=== PATIENT | female | born 1970 | race Caucasian/White ===

== ENCOUNTER 2016-07-03 21:12 | Inpatient (IN) | payer BC ==
[~2016-07-03] VITALS: Ht 172.7 cm; Wt 79.5 kg
--- NOTE | ~2016-07-03 | HP ---
PATIENT'S NAME: BOBO DE SOUZA [facility] AGE: 46 Y [address] ROOM: [address] [place] [address] [place] [facility] [place]: 07/03/2016 History & Physical DISCHARGE DATE: FAMILY PHYSICIAN: Ayde Alvarez MD ATTENDING PHYSICIAN: WASHINGTON ROBERTSON DATE OF SERVICE: CHIEF COMPLAINT: Abdominal pain. 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 The story is that on July 03, 2016, while she was at work here in the hospital, the patient had a salad for lunch, and roughly around 03:30 p.m., the patient started feeling increased peristalsis noise in her abdomen. Then, she started to feel this left lower quadrant pain and the periumbilical pain of about 3/10 intensity about intermittent characteristic, which was on and off and localized. As the day went by, this pain had become constant, and was getting worse. When the patient got home, the patient ate some crackers, and the pain was still there and still constant. It got worse up to 9/10 intensity. Last time the patient passed flatus was around 8 p.m. when she got home just once. She had not passed any flatus prior to that on July 03, 2016. Last bowel movement was yesterday morning on July 03, 2016. One bowel movement, and it was normal. Last time she ate a meal was the cracker, that was around 7 p.m. when she got home from work on July 03, 2016. Because the pain got worse at home, the patient contacted [facility], where a physician was evaluating her through the computer, and the patient was advised to come to the ER for evaluation. The patient never had this kind of pain before, and the patient does have a prior intra-abdominal surgery in the past including three times, the last time was in 2010. At that time, the was inadvertently into the bladder, where she also required some bladder repair at that time. The patient also has a history of a right ovary hemorrhagic cyst removal, where she underwent status post right salpingo-oophorectomy that was in 2014. Due to the adhesion from all the C-sections in the past, the patient also required a laparoscopic adhesion lysis back in 2013, where a lot of adhesions were removed. The patient has not felt any nausea, and has not vomited during all this time. The patient does not know any family history of any gastrointestinal disorder, given that the patient is adopted. Therefore, the patient does not know if any family member had any history of inflammatory bowel disease or not. PATIENT'S NAME: BOBO DE SOUZA [facility] AGE: 46 Y [address] ROOM: [place] [address] [place] [facility] [place]: 07/03/2016 History & Physical DISCHARGE DATE: FAMILY PHYSICIAN: Ayde Alvarez MD ATTENDING PHYSICIAN: WASHINGTON ROBERTSON REVIEW OF SYSTEMS: As mentioned in the history of present illness. All other systems were reviewed, and are negative except those mentioned in the history of present illness. PAST MEDICAL HISTORY: No known past medical history. ALLERGIES: SULFA, WHICH CAUSES HIVES. TETRACYCLINE ALSO CAUSES HIVES. HOME MEDICATIONS: 1. Multivitamin one tablet p.o. daily. 2. Flexeril p.o. on an occasional basis p.r.n. for spasm. 3. Occasional meloxicam p.o. p.r.n. also for spasm. FAMILY HISTORY: The patient is adopted. Therefore, does not know much about her biological parents' past medical history. SOCIAL HISTORY: The patient denies any illegal drug or cigarette smoking in the present or in the past. The patient is a social alcohol drinker. She denies any alcohol withdrawal or any alcohol withdrawal delirium tremens or alcohol withdrawal seizure or any history of alcohol dependence. PAST SURGICAL HISTORY: 1. Status post three times. The last one was done in 2010, which included bladder repair due to injury during the . 2. Status post laparoscopic adhesion lysis in 2013 from the scar tissue from the . 3. Status post right ovary removal from hemorrhagic cyst and status post a right salpingo-oophorectomy back in 2014. 4. Status post bilateral temporomandibular joint repair back in 1989. PHYSICAL EXAMINATION: VITAL SIGNS: At the time of my dictation, temperature was 98, blood pressure was 120/80, respirations were 14, and saturation was 99% on room air. Pain is 3 to 4/10 in the periumbilical area and also in the left lower quadrant area. GENERAL APPEARANCE: Alert and oriented x3. A very pleasant female, in no acute distress. She answered questions appropriately and followed commands without any problem. HEENT: Pupils were equally round and reactive to light. Extraocular muscles were intact. Anicteric sclerae. Nasal turbinates are normal bilaterally. Moist oral mucosa. PATIENT'S NAME: BOBO DE SOUZA [facility] AGE: 46 Y [address] ROOM: [place] [address] [place] [facility] [place]: 07/03/2016 History & Physical DISCHARGE DATE: FAMILY PHYSICIAN: Ayde Alvarez MD ATTENDING PHYSICIAN: WASHINGTON ROBERTSON NECK: No JVD. CARDIOVASCULAR: Regular rate and rhythm. Normal S1 and S2. No murmur. No rubs. No gallops. RESPIRATORY: Clear. Chest wall was nontender to palpation. ABDOMEN: Soft and nondistended. Bowel sounds were absent. No palpable mass. Tender to palpation of about 3 to 4/10 intensity in the left lower quadrant and also in the periumbilical area, and a little bit in the epigastric area. No abdominal rigidity. No findings to suggest peritonitis. No ascites. No rebound tenderness. EXTREMITIES: No edema in upper or lower extremity. Dorsalis pedis pulses were +2 bilaterally present and symmetrical. SKIN: No ulcer. No rash. No cyanosis. MUSCULOSKELETAL: No joint pain. No muscle pain. Range of motion was intact. NEUROLOGICAL: Grossly nonfocal. LABORATORY DATA: CPK was 69 and troponin was less than 0.04. White blood cells of 10.7, hemoglobin of 14, hematocrit of 38.8, MCV of 89.8, and platelets of 221. Glucose is 84, BUN is 12, creatinine is 0.7, sodium is 138, potassium is 3.5, chloride is 103, CO2 is 25, calcium is 9.6, total protein is 7, albumin is 4.5, AST is 16, ALT is 26, alkaline phosphatase is 69, total bilirubin is 0.7, anion gap is 13.5, globulin is 3.4, and GFR is more than 60. INR of 0.9 and APTT of 27. Urinalysis was negative for UTI. Amylase is 51, lipase is 90, and CK-MB is 0.9. IMAGING STUDIES: Ultrasound of the abdomen, the verbal report given to me from the ER, it was unremarkable. Please follow up with official reading in the morning. CT of abdomen and pelvis with contrast performed in the Emergency Room on admission, the preliminary report was read as a few pelvic segments of small bowel fluid-filled and mildly dilated with adjacent inflammatory changes. Considerations would include a developing low-grade obstruction or adynamic ileus. Correlate clinically for inflammatory bowel disease. Small, ill- defined extraluminal foci of gas and fluid suspicious for fistula formation or perforation. Indeterminate liver lesions as discussed. MRI may provide further characterization. EKG on admission, on July 03, 2016 at 10:12 p.m. showed sinus tachycardia at heart rate of 101, ME of 157 msec, QRS of 94 msec, QTc of 411 msec, and no acute ischemic changes. ASSESSMENT AND PLAN: 1. Regarding her abdominal pain, probably secondary to low-grade small bowel obstruction versus ileus versus inflammatory bowel disease, and PATIENT'S NAME: BOBO DE SOUZA [facility] AGE: 46 Y [address] ROOM: [place] [address] [place] [facility] [place]: 07/03/2016 History & Physical DISCHARGE DATE: FAMILY PHYSICIAN: Ayde Alvarez MD ATTENDING PHYSICIAN: WASHINGTON ROBERTSON suspicious for a fistula formation or perforation based on the preliminary report of the CT of abdomen and pelvis with contrast on admission: We will follow up with official report in the morning once the report is finalized, given the preliminary; sometimes, the report results can vary in the morning once it becomes finalized. I will treat her for all the possible differential diagnosis here based on physical exam and also on the CT report. For the possible low-grade small bowel obstruction, she will be n.p.o. and IV fluids for hydration. I will choose a D5 half-normal saline with 20 mEq of potassium chloride at 75 mL/hr, and also put NG tube right now for gastric decompression. Check lactic acid with add-on. A repeat lactic acid and also a basic metabolic panel and also get a KUB in the morning. General Surgery has already been informed about the case, and will see the patient in the morning for further evaluation. For the second possibility over the ileus, I will treat her right now for the small bowel obstruction, and wait for the final report of the CT in the morning and a KUB in the morning. If determined she has ileus and not a small bowel obstruction, then bowel regimen can be given. For the third differential based on the CT is inflammatory bowel disease with adjacent inflammatory changes and probably is less likely, given that the patient never had diarrhea and never had a history of known inflammatory bowel disease. However, due to the possible adjacent inflammatory changes and the pain on her abdominal examination, I will cover her with IV Solu-Medrol 40 mg one dose right now, and then cover her with antibiotics including IV ciprofloxacin and also IV Flagyl dosing per Pharmacy to treat for colitis. Regarding her suspicions for a fistula formation or perforation, at this point, there are no findings to suggest abdominal rigidity on the physical examination. The patient is not septic and also not febrile. The pain is already improving with the IV Dilaudid and also IV morphine given in the Emergency Room. We will follow up her closely with serial abdominal physical examination, looking for any formation of abdominal rigidity. Further plan depends on clinical course and based on the final report of the CT abdomen and pelvis in the morning, and also General Surgery consult. While she is n.p.o., I will also give her p.o. Peridex four times a day, and also she can have ice chips in a small amount to keep the oral cavity moist. Further plan depends on clinical course. The patient does have risk factor for small bowel obstruction due to her prior three sections and also prior history of a right salpingo- oophorectomy and also prior history of laparoscopic adhesion lysis back in 2013. 2. Regarding her deep venous thrombosis prophylaxis. The patient will be on compression devices for now in case that she would require any surgical intervention depending on the General Surgery evaluation in the morning. 3. Code status. She is a full code. PATIENT'S NAME: BOBO DE SOUZA [facility] AGE: 46 Y [address] ROOM: [place] [address] [place] [facility] [place]: 07/03/2016 History & Physical DISCHARGE DATE: FAMILY PHYSICIAN: Ayde Alvarez MD ATTENDING PHYSICIAN: WASHINGTON ROBERTSON Time spent in care on the day of admission was 50 minutes including chart review, interviewing the patient, examining the patient, addressing all the questions and concerns that the patient had, and also went over the plan of care in detail with the patient and also with the nurses. All questions and concerns were answered to the patient's satisfaction. The patient is in agreement with the plan, and further plan will depend on clinical course. MD JJ HARRIS/yana /[id number] D: [id number] T: [id number] HISTORY & PHYSICAL
--- NOTE | ~2016-07-03 | DS ---
PATIENT'S NAME: BOBO DE SOUZA [facility] AGE: 46 Y [address] ROOM: [address] [place] [id number] LOCATION: [facility] [place] ADMIT DATE: 07/03/2016 Discharge Summary DISCHARGE DATE: 07/06/2016 FAMILY PHYSICIAN: Ayde Alvarez MD ATTENDING PHYSICIAN: Rivas Roe PRIMARY DIAGNOSES: 1. Small bowel obstruction secondary to band adhesion. 2. Lower quadrant abdominal pain. 3. Liver lesion which is focal nodular hyperplasia. PRINCIPAL PROCEDURE: Done for the patient by Dr. Molina is laparoscopic release of small bowel obstruction. LABORATORY DATA: On admission, troponin less than 0.040. Lactic acid 1.3. WBC on admission was 10.7, prior to discharge was 12.2; H and H on admission was 14.0/38.8, prior to discharge was 13.2/37.6; and platelet was stable throughout hospital stay, at 234 upon discharge. Creatinine was also stable throughout the hospital stay at 0.7; sodium was stable throughout his hospital stay, at 143 upon discharge; potassium on admission was 3.5, was repleted, prior to discharge it was 4.2; bicarb was stable at 25 throughout the hospital stay; and BUN was 12, was also stable throughout the hospital stay. Liver function tests were within normal limits. UA: Leukocytes negative, nitrite negative. Lipase 90, amylase 51. Microbiology: H. pylori negative. RADIOLOGY: Abdominal ultrasound: Normal complete abdominal ultrasound. CT of the abdomen: Focal dilated mid small bowel loops in the pelvis with mild inflammation, could be a partial obstruction from adhesion. There is also a possibility of focal small-bowel diverticulitis in this area. Stable enhancing liver lesion, probably focal nodular hyperplasia. KUB: There is nonobstructive bowel gas pattern. A moderate amount of fecal matter is present throughout the colon. Contrast material is present within the bladder. NG tube is present with tip at the proximal region of the GE junction. MRI of the abdomen and pelvis is reported as 5 hepatic lesions with intense early arterial phase enhancement, becoming isointense on the portal phase imaging and near isointense on both T1 and T2 weighted images. Findings are consistent with multiple areas of focal nodular hyperplasia. HOSPITAL COURSE: For history of present illness, please take a look at the H and P which was done by Dr. Roe. The patient was admitted to Medical Surgical Unit, had a general surgery consult because of the initial CAT scan report of probably a small-bowel obstruction. She was managed conservatively overnight with an NG tube in place, put on n.p.o., and NG connected to intermittent suction; however, by morning, clinically the patient did not feel better, she looked more sick, so Dr. Molina decided to take the patient into PATIENT'S NAME: BOBO DE SOUZA [facility] AGE: 46 Y [address] ROOM: [address] [address] LOCATION: [facility] [place] ADMIT DATE: 07/03/2016 Discharge Summary DISCHARGE DATE: 07/06/2016 FAMILY PHYSICIAN: Ayde Alvarez MD ATTENDING PHYSICIAN: Rivas Roe the OR for a laparoscopy with release of adhesion. The procedure was well tolerated by the patient and following the procedure, she was started on clear liquid diet which she tolerated well and her diet was advanced as tolerated. On the first day postop, she did pretty good and by the second day postop, she was asymptomatic, was ambulating on the floor, had no abdominal pain. No nausea or vomiting, and she was discharged home. Also given her CT finding of increased liver lesion, she did get an MRI of her abdomen and pelvis to further evaluate the liver lesion which appeared to be focal nodular hyperplasia, so a followup was recommended, probably in the next year. The patient was put on Cipro and Flagyl during her hospital stay. MEDICATIONS ON DISCHARGE: 1. Multivitamin. 2. Martha. Also her regular medications of, 1. Cyclobenzaprine 5 mg p.o. q.h.s. 2. Mobic 7.5-15 mg p.o. daily p.r.n. 3. [place] 5/325 mg 1-2 tablets p.o. q.4 hours p.r.n. pain. MD GEORGIE SCHNEIDER/yana /[id number] d: 07/06/162056 t: 07/18/161, DISCHARGE SUMMARY
--- NOTE | ~2016-07-03 | ER ---
[facility] AGE: 46 Y [address] ROOM: [address] [address] [place] [facility] [place]: 07/[place] ER/Outpatient Report DISCHARGE DATE: FAMILY PHYSICIAN: Ayde Alvarez MD ATTENDING PHYSICIAN: WASHINGTON ROBERTSON Time of Arrival: 2112 hours. Time of Evaluation: 2115 hours. CHIEF COMPLAINT: Abdominal pain. HISTORY OF PRESENT ILLNESS: This is a 46-year-old female who presents to the ER, who states that she started not feeling well 6 hours ago. She states initially it started in her midepigastric region and then now she feels like there is a line of pain all the way down the left side of her abdomen. She states that it is a cramping aching pain, and she states that she cannot get in any position to make herself feel better. She has felt nauseated. She has had no vomiting, no diarrhea, no history of constipation. She states that she felt like maybe she had some gas, so she did take some Imodium for that to see if that would help her, which it did not. She has had no troubles with urination. She does not believe that she is running any fevers at home, and she has never had any pain like this before. ALLERGIES: SULFA AND TETRACYCLINE. MEDICATIONS: Please see medication list, nurse's notes. PAST MEDICAL HISTORY: 1. Fibromyalgia. 2. Gallstones. PAST SURGERIES: x3 and right ovary removal. SOCIAL HISTORY: She drinks alcohol occasionally. Denies any smoking use. REVIEW OF SYSTEMS: A 10-point review of systems was completed and was negative with the exception of those discussed in the HPI. [facility] AGE: 46 Y [address] ROOM: [facility] [place] [place], [place] [address] [place] [facility] [place]: 07/03/2016 ER/Outpatient Report DISCHARGE DATE: FAMILY PHYSICIAN: Ayde Alvarez MD ATTENDING PHYSICIAN: WASHINGTON ROBERTSON PHYSICAL EXAMINATION: VITAL SIGNS: Blood pressure is 156/88, pulse 114, respirations 22, temperature 96.8 degrees tympanically, and saturations 100% on room air. Josh Coma Score is 15. GENERAL: Alert, 46-year-old, in moderate distress. HEENT: Head: Normocephalic. She does display moist mucous membranes. Eyes: Pupils are equal and reactive to light. NECK: Supple. No lymphadenopathy. LUNGS: Clear to auscultation bilaterally. No wheezes or crackles. HEART: Tachycardic. Normal rhythm. ABDOMEN: She has tenderness in her midepigastric region and left lower quadrant with palpation. She does have guarding with that as well. She has hypoactive bowel sounds throughout. NEUROLOGIC: Cranial nerves 2 through 12 grossly intact. Gait is steady without assistance. LABORATORY DATA: White count is 10.7, hemoglobin is 14.0, platelets 221, ANC is 7.5. CMS: Sodium is 158, potassium 3.5, otherwise unremarkable. Amylase 51, lipase 90. Urinalysis is negative for any infection. EKG shows sinus tachycardia. Ultrasound was done of the right upper quadrant and shows no abnormality and reported by mine technician. CT scan was done with IV contrast and shows few pelvic segments of small bowel fluid filled and mildly dilated with adjacent inflammatory changes. Considerations would include a low-grade obstruction versus ileus. Also has some small ill-defined foci of gas and fluids, which would be suspicious for fistula formations or perforation. She also has some indeterminate liver lesions. IMPRESSION: 1. Abdominal pain with suspicion of a low-grade obstruction versus ileus. She also has a small ill-defined extraluminal gas and fluid suspicious for fistula formation or perforation. 2. Indeterminate liver lesions. ASSESSMENT AND PLAN: We did start IV here in the emergency room. I initially gave her 4 mg of Zofran, some IV fluids, and a total of 4 mg of morphine, which did not really improve her pain. I then gave her Dilaudid, a total of 2 mg IV during her ER course, and she did rest more comfortably with that. The patient's primary care physician is Dr. Ayde Alvarez. Therefore, I called the Hospitalist Service, Dr. Robertson as well as notified Dr. Molina. We will be turning the care of the patient over to the Hospitalist Service and Dr. Molina at this time. The patient understands and agrees with care. PATIENT'S NAME: BOBO DE SOUZA [facility] AGE: 46 Y [address] ROOM: [place] [id number] [place] [facility] [place]: 07/03/2016 ER/Outpatient Report DISCHARGE DATE: FAMILY PHYSICIAN: Ayde Alvarez MD ATTENDING PHYSICIAN: WASHINGTON ROBERTSON JOYCE GRADY PA-C FOR DO ISABEL SOLANO/modl /[id number] d: 07/04/16 0409 t: 07/08/16 1931, OUTPATIENT REPORT
--- NOTE | ~2016-07-03 | OR ---
PATIENT'S NAME: BOBO DE SOUZA [facility] AGE: 46 Y [address] ROOM: [address] [address] LOCATION: [facility] [place] ADMIT DATE: 07/03/2016 OR/Procedure Report DISCHARGE DATE: FAMILY PHYSICIAN: Ayde Alvarez MD ATTENDING PHYSICIAN: WASHINGTON ROBERTSON SURGEON: Mitch Gonzales MD MACHINE COREMAKER: Demetris Gilliam PA-C. DATE OF PROCEDURE: 07/04/2016 REFERRING PHYSICIAN: Dr. Hathaway. PREOPERATIVE DIAGNOSIS: Partial small bowel obstruction. POSTOPERATIVE DIAGNOSIS: Small bowel obstruction secondary to band adhesion. PROCEDURE: Laparoscopic release of band adhesion. ANESTHESIA: General. A 5 mL of 1% Xylocaine. SPECIMEN: None. INDICATION: The patient is a 46-year-old young lady, who has about an 18-hour history of abdominal pain, which is felt to be partial early complete small bowel obstruction. She has had previous pelvic operations. She has continued pain with initial conservative management and we elected to perform laparoscopy. DESCRIPTION OF PROCEDURE: After informed consent, the patient was taken to the operating room, and after general endotracheal anesthesia, the patient's abdomen was prepped and draped into a sterile field. A time-out performed. We confirmed the patient, planned procedure and administration of preop antibiotics. We injected local anesthetic prior to the first incision below the umbilicus, identified the anterior fascia. I placed a Veress needle into the peritoneal cavity. Did a saline test and then created pneumoperitoneum. We placed a 5-mm trocar and laparoscope in the right upper quadrant. We placed a 5-mm laparoscope. We used the nontraumatic bowel grasper. We elevated up the cecum. The appendix was normal. We identified normal terminal ilium, we traced it back down toward the pelvis. There, we identified a dilated loop of small bowel, it was dusky and we photographed the band adhesion. We simply cut it to release the obstruction. The bowel became hyperemic, but viable. We traced it back approximately another 2 feet out of the pelvis, were back to normal bowel. The left ovary had a follicle present. There was no other pathology in the pelvis. We irrigated until clear. We observed the small bowel again, was found to be viable. We released the pneumoperitoneum. Closed the skin with subcuticular 4-0 Vicryl. PATIENT'S NAME: BOBO DE SOUZA [facility] AGE: 46 Y [address] ROOM: [place] [address] LOCATION: [facility] [place] ADMIT DATE: 07/03/2016 OR/Procedure Report DISCHARGE DATE: FAMILY PHYSICIAN: Ayde Alvarez MD ATTENDING PHYSICIAN: WASHINGTON ROBERTSON Steri-Strips and sterile dressings applied. The patient tolerated the procedure well and transferred to recovery room in stable condition. MITCH GONZALES MD WTKarmen/modl /[id number] d: 07/04/16 2341 t: 07/18/16 1134, OPERATIVE SUMMARY
--- NOTE | ~2016-07-03 | HP ---
PATIENT'S NAME: BOBO [facility] AGE: 46 Y [address] ROOM: [place] [address] LOCATION: [facility] [place] ADMIT DATE: 07/03/2016 History & Physical DISCHARGE DATE: FAMILY PHYSICIAN: Ayde Alvarez MD ATTENDING PHYSICIAN: WASHINGTON ROBERTSON DATE OF SERVICE: DATE OF SURGICAL HISTORY AND PHYSICAL: 07/04/2016. CHIEF COMPLAINT: Abdominal pain. REVIEW OF RECORD: The patient is a pleasant 46-year-old young lady, who presented to the emergency room last evening on 07/03/2016 with development of abdominal pain since 3:00 p.m. that afternoon. Says it kind of started in the epigastrium and left upper quadrant and was a little bit crampy in nature. She had nausea and vomiting episode. She has had no fevers or chills. She has normal bowel movement yesterday morning, but no flatus yesterday. She has not had any diarrhea or preceding abdominal pain symptoms similar to this. She states she could not get herself in position to be comfortable and therefore presented to the emergency room. There, she was evaluated and found to have normal laboratory evaluation including negative test. She had an ultrasound which did not show any thing in the gallbladder. CT scan preliminary report suggested partial small bowel obstruction, possible fistula or even microperforation of the loop of small bowel. Colon, pancreas, and liver was normal. I reviewed it with Dr. Cordova, radiologist, today and it suggested maybe just early partial small bowel obstruction. No evidence of perforation and trace of free fluid in the pelvis. No mass. 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 She has no history of inflammatory bowel disease. No history of trauma. No history of foreign travel. No radiation history. Her family history is unknown due to adoption. PAST MEDICAL HISTORY: ALLERGIES: SULFA AND TETRACYCLINE. OPERATIONS: 1. x3. 2. Right oophorectomy. PATIENT'S NAME: BOBO [facility] AGE: 46 Y [address] ROOM: [place] [address] LOCATION: [facility] [place] ADMIT DATE: 07/03/2016 History & Physical DISCHARGE DATE: FAMILY PHYSICIAN: Ayde Alvarez MD ATTENDING PHYSICIAN: WASHINGTON ROBERTSON 3. Laparoscopy. ILLNESSES: 1. Fibromyalgia. 2. History of cholelithiasis (?). SOCIAL HISTORY: She is a nurse in the intensive care unit. Does not use tobacco. Rarely uses alcohol. She is . REVIEW OF SYSTEMS: She denies any documented fevers. Denies any jaundice. Denies any change in her vision or hearing. No bloody emesis. No shortness of breath. No chest pain. She has a little discomfort in her upper outer quadrant in the left breast. She says she is due for her mammogram. She has not noticed any lymph node. She has no history of autoimmune or disease. She denies any swollen joints. PHYSICAL EXAMINATION: GENERAL: She is a pleasant ill-appearing young lady. She is afebrile. HEENT: Head is normocephalic. Her sclerae are nonicteric. Mucous membranes are dry. NECK: Supple. No adenopathy. No supraclavicular adenopathy. LUNGS: Clear to auscultation. HEART: Normal sinus rhythm. BREASTS: Not performed. ABDOMEN: Has positive bowel sounds without rushes. She is nondistended. She is tender mostly in the infraumbilical and to the left of the midline. She has mild guarding with deep palpation over the area that corresponds with the CT abnormality. There is no palpable mass. She did have no signs of generalized peritonitis. EXTREMITIES: She has no peripheral edema at the ankle. IMPRESSION: Likely early partial small bowel obstruction. I suspect adhesions as the culprit if it progresses to full-blown obstruction. I do not see any evidence of fistula or microperforation. Cannot rule out gastroenteritis and inflammatory bowel disease, Meckel's diverticulitis, etc. I had discussion with the patient and her regarding treatment options. We talked about observation, medical management, IV hydration, NG decompression, mobilization, and repeat exams. If she fails this approach and we would go to our 2nd option which is laparoscopy, possible enterolysis, possible small bowel resection, etc. The patient agrees to initial conservative management. We will perform followup examination throughout the day. PATIENT'S NAME: BOBO [facility] AGE: 46 Y [address] ROOM: [address] [address] LOCATION: [facility] [place] ADMIT DATE: 07/03/2016 History & Physical DISCHARGE DATE: FAMILY PHYSICIAN: Ayde Alvarez MD ATTENDING PHYSICIAN: WASHINGTON ROBERTSON Thank you very much for allowing me to participate in her care. MD YAMILKA JARVIS/modl /[id number] D: [id number] T: 131 HISTORY & PHYSICAL
[~2016-07-03 21:12] MED LIST: ADVIL200 MG PO; ALLERGY25 M1 PO; NORVASC5 MG PO; PROTONIX40 MG PO; THERAGRAN-M1 TAB PO
[2016-07-03 21:34] LABS: BASOPHIL % 0.3 %; EOSINOPHIL # 0.1 K/uL (0.0-0.5); EOSINOPHIL % 1.3 %; HEMATOCRIT 38.8 % (33.0-46.0); IMMATURE GRANULOCYTE % 0.3 %; LYMPHOCYTE # 2.5 K/uL (0.8-4.0); LYMPHOCYTE % 22.9 %; MCH 32.4 pg (27.0-34.0); MCHC 36.1 gm/dL (32.0-36.5); MCV 89.8 fl (83.0-98.0); MONOCYTE # 0.5 K/uL (0.0-1.0); MONOCYTE % 5.1 %; MPV 11.5 fl (9.4-12.4); NEUTROPHIL # (ANC) 7.5 K/uL (1.8-7.8); NEUTROPHIL % 70.1 %; NRBC % 0 /100WBC (0-0.00); PLATELET COUNT 221 K/uL (150-450); RBC 4.32 M/uL (3.50-5.50); RDW-CV 11.6 % (11.9-14.6); WBC 10.7 K/uL (4.0-11.0)
[2016-07-03 21:51] LABS: ALBUMIN 4.5 gm/dL (3.5-5.0); ALK PHOS 69 IU/L (33-138); ALT 26 IU/L (12-78); ANION GAP 13.5 (10.0-19.0); AST 16 IU/L (10-40); BLOOD UREA NITROGEN 12 mg/dL (6-24); CALCIUM 9.6 mg/dL (8.5-10.5); CHLORIDE 103 mMol/L (96-110); CO2 25 mMol/L (22-32); CREATININE 0.7 mg/dL (0.5-1.1); ESTIMATED GFR (MDRD EQUATION) > 60; POTASSIUM 3.5 mMol/L (3.7-5.1); SODIUM 138 mMol/L (135-145); TOTAL BILIRUBIN 0.7 mg/dL (0.0-1.5); TOTAL PROTEIN 7.9 g/dL (6.0-8.4)
[2016-07-03 22:12] LABS: BILIRUBIN URINE NEGATIVE (NEGATIVE); BLOOD URINE NEGATIVE /UL (NEGATIVE); COLOR URINE YELLOW (YELLOW); GLUCOSE URINE NEGATIVE (NEGATIVE); KETONE URINE NEGATIVE (NEGATIVE); LEUKOCYTES URINE NEGATIVE /UL (NEGATIVE); NITRITE URINE NEGATIVE (NEGATIVE); PROTEIN URINE NEGATIVE (NEGATIVE); SPEC GRAVITY URINE 1.015 (1.003-1.035); TURBIDITY URINE CLEAR (CLEAR); UROBILINOGEN URINE NORMAL (NORMAL)
[2016-07-03 23:25] LABS: INR - (THERAPEUTIC) 0.98 (0.92-1.07); PROTIME 10.3 SECONDS (9.8-11.4)
[2016-07-03 23:30] LABS: CPK 69 IU/L (21-215)
[2016-07-04] MEDS ORDERED: MOBIC15 MG PO (02:05)
[2016-07-04] MEDS ORDERED: CYCLOBENZAPRINE5 MG PO (02:06)
[2016-07-04 06:16] LABS: BLOOD UREA NITROGEN 9 mg/dL (6-24); CALCIUM 8.8 mg/dL (8.5-10.5); CHLORIDE 104 mMol/L (96-110); CO2 25 mMol/L (22-32); CREATININE 0.7 mg/dL (0.5-1.1); ESTIMATED GFR (MDRD EQUATION) > 60; MAGNESIUM 2.2 mg/dL (1.8-2.6); PHOSPHORUS 2.1 mg/dL (2.5-4.9); SODIUM 138 mMol/L (135-145)
[2016-07-05 05:30] LABS: BASOPHIL % 0.1 %; EOSINOPHIL % 0.1 %; HEMATOCRIT 37.6 % (33.0-46.0); HEMOGLOBIN 13.2 g/dL (10.0-15.0); IMMATURE GRANULOCYTE # 0.1 K/uL (0.0-0.3); IMMATURE GRANULOCYTE % 0.5 %; LYMPHOCYTE # 1.7 K/uL (0.8-4.0); LYMPHOCYTE % 13.6 %; MCH 31.8 pg (27.0-34.0); MCHC 35.1 gm/dL (32.0-36.5); MCV 90.6 fl (83.0-98.0); MONOCYTE # 0.7 K/uL (0.0-1.0); MONOCYTE % 5.3 %; MPV 11.5 fl (9.4-12.4); NEUTROPHIL # (ANC) 9.8 K/uL (1.8-7.8); NEUTROPHIL % 80.4 %; NRBC % 0 /100WBC (0-0.00); PLATELET COUNT 234 K/uL (150-450); RBC 4.15 M/uL (3.50-5.50); RDW-CV 11.7 % (11.9-14.6); WBC 12.2 K/uL (4.0-11.0)
[2016-07-05 05:47] LABS: ANION GAP 12.1 (10.0-19.0); BLOOD UREA NITROGEN 6 mg/dL (6-24); CALCIUM 8.7 mg/dL (8.5-10.5); CHLORIDE 107 mMol/L (96-110); CO2 26 mMol/L (22-32); CREATININE 0.8 mg/dL (0.5-1.1); ESTIMATED GFR (MDRD EQUATION) > 60; MAGNESIUM 2.3 mg/dL (1.8-2.6); POTASSIUM 4.1 mMol/L (3.7-5.1); SODIUM 141 mMol/L (135-145)
[2016-07-06 05:41] LABS: ANION GAP 11.2 (10.0-19.0); BLOOD UREA NITROGEN 6 mg/dL (6-24); CALCIUM 8.5 mg/dL (8.5-10.5); CHLORIDE 109 mMol/L (96-110); CO2 27 mMol/L (22-32); CREATININE 0.7 mg/dL (0.5-1.1); ESTIMATED GFR (MDRD EQUATION) > 60; PHOSPHORUS 2.6 mg/dL (2.5-4.9); POTASSIUM 4.2 mMol/L (3.7-5.1); SODIUM 143 mMol/L (135-145)
[2016-07-06] MEDS ORDERED: NORCO 5-325 TA1 EACH PO (09:06)
== END 2016-07-06 11:55 | disposition disaster alternative care site (69) | DRG 337 ==
LOC: GMED 21:12 → GMSU 23:56
PROVIDERS: Hospitalist; Physician Assistant Medical; ADMIT Internal Medicine
PROC: 0DN84ZZ Release Small Intestine, Percutaneous Endoscopic Approach (ICD-10-PCS; principal; 2016-07-04)
DX: K56.5 Intestinal adhesions [bands] with obstruction (postinfection) (principal); K76.89 Other specified diseases of liver; K76.9 Liver disease, unspecified; Z87.19 Personal history of other diseases of the digestive system; Z90.721 Acquired absence of ovaries, unilateral; M79.7 Fibromyalgia
CPT/HCPCS: A9577; C1751; C9113; J0131; J0690; J0744; J1170; J1650; J2270; J2405; J2550; J2920; J3010; J3480; J7030; J7050; Q9967

== ENCOUNTER → 2016-07-10 | Outpatient (CLI) | payer BC ==
[~2016-07-10] MED LIST changes: +CYCLOBENZAPRINE5 MG PO; +MOBIC15 MG PO; +NORCO 5-325 TA1 EACH PO
== END | disposition disaster alternative care site (69) ==
LOC: GBCOE 06-27 11:46
DX: N64.89 Other specified disorders of breast (principal)
CPT/HCPCS: G0204; G0279